=== PATIENT | male | born 1935 | race Caucasian/White ===

== ENCOUNTER 2017-08-10 16:23 | Emergency (ER) | payer OTHER ==
[2017-08-10 16:34] VITALS: TEMP 36.3
--- NOTE | 2017-08-10 20:24 | DIAGNOSTIC IMAGING REPORT ---
ULTRASOUND RIGHT LOWER EXTREMITY VENOUS CLINICAL HISTORY: Right leg swelling. COMPARISON STUDY: No priors. TECHNIQUE: Real-time, grayscale, and color Doppler sonography of the deep veins of the right lower extremity was performed from the inguinal crease to the calf. Compression and augmentation were utilized. Examination is degraded by large body habitus and soft tissue edema. FINDINGS: The right popliteal vein is noncompressible consistent with deep venous thrombosis. Flow is shown within the vessel. The common femoral and superficial femoral veins are patent and normally compressible. The greater saphenous vein and the profunda femoris vein at the junction with the common femoral vein are clear. The visualized calf veins are patent. IMPRESSION: Nonocclusive and age indeterminant deep venous thrombosis is identified in the right popliteal vein. Electronically signed by: Flaco Avila M.D. 08/10/2017 8:22 PM Dictated Date/Time: 08/10/2017 8:21 PM
--- NOTE | 2017-08-10 20:33 | EMERGENCY ROOM VISIT NOTE ---
History Report prepared by Santiibdat: Kevin Villalba Under the Supervision of: Dr. Miky Schilling D.O. First contact with patient: 18:22 Chief Complaint: LEG PAIN,LEG INJURY Stated Complaint: BLOOD CLOT RT LEG History of Present Illness The patient is a 82 year old male who presents to the Emergency Room with complaints of persistent right leg pain beginning last month. 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 He was started on Coumadin for the blood clot, with his most recent INR occurring four days ago. The patient has been seen in the [place] ED twice over the past few weeks for similar symptoms and was told that there was likely blood pooling around the clot. He also complains of worsening bilateral leg swelling. He notes that a few of the toes on his left foot appear purple. The patient was previously on Coumadin for a pacemaker, but was taken off due to being a high fall risk. Per daughter, the patient was told that the DVT in his right leg would likely need to be surgically removed. Source of History: patient Onset: Last month Position: leg (right) Timing: other (persistent) Note: Additional symptoms: bilateral leg swelling. Review of Systems See HPI for pertinent positives & negatives. A total of 10 systems reviewed and were otherwise negative. Past Medical & Surgical Medical Problems: (1) DVT (deep vein thrombosis) in (2) Pacemaker Family History No pertinent family history stated. Social History Smoking Status: Never Smoker Allergies Coded Allergies: Morphine (Unverified Allergy, Mild, 12/13/09) Sulfa Drugs (Unverified Allergy, Mild, 12/13/09) Penicillins (Verified Allergy, Unknown, 12/13/09) Physical Exam Vital Signs Date Time Temp Pulse Resp B/P (MAP) Pulse Ox O2 Delivery O2 Flow Rate FiO2 08/10/17 16:34 36.3 84 18 149/77 96 Room Air Physical Exam CONSTITUTIONAL/VITAL SIGNS: Reviewed / noted above. GENERAL: Non-toxic in appearance. INTEGUMENTARY: Warm, dry, and [place]. HEAD: Normocephalic. EYES: without scleral icterus or trauma. ENT/OROPHARYNX: clear and moist. LYMPHADENOPATHY/NECK: Is supple without lymphadenopathy or meningismus. RESPIRATORY: Lungs clear and equal. CARDIOVASCULAR: Regular rate and rhythm. GI/ABDOMEN: Soft and nontender. No organomegaly or pulsatile mass. No rebound or guarding. Normal bowel sounds. EXTREMITIES: Warm and well perfused. Bilateral lower extremity edema right greater than left. BACK: No CVA tenderness. NEUROLOGICAL: Intact without focal deficits. PSYCHIATRIC: normal affect. MUSCULOSKELETAL: Normally developed with good muscle tone. Medical Decision & Procedures ER Provider Diagnostic Interpretation: Radiology results as stated below per my review and radiologist interpretation: ULTRASOUND RIGHT LOWER EXTREMITY VENOUS FINDINGS: The right popliteal vein is noncompressible consistent with deep venous thrombosis. Flow is shown within the vessel. The common femoral and superficial femoral veins are patent and normally compressible. The greater saphenous vein and the profunda femoris vein at the junction with the common femoral vein are clear. The visualized calf veins are patent. IMPRESSION: Nonocclusive and age indeterminant deep venous thrombosis is identified in the right popliteal vein. Electronically signed by: Flaco Avila M.D. 08/10/2017 8:22 PM ED Course 1824: Previous medical records were reviewed. The patient was evaluated in room B10. A complete history and physical examination was performed. 2044: On reevaluation, the patient is resting comfortably. I discussed the results and findings with the patient. He verbalized agreement of the treatment plan. He was discharged home. Medical Decision Differential diagnosis: Etiologies such as DVT, musculoskeletal, infection, joint effusion, trauma, lymphedema, idiopathic, CHF, as well as others were entertained. This is an 82-year-old male who presents to the ED with a chief complaint of right lower extremity swelling. The patient states that he has history of a DVT in that leg. He reports that he has had a nonocclusive DVT in the right lower extremity. I saw previous report that revealed a popliteal DVT. The patient's INR was checked on Wednesday and it was 3.1. Because of the swelling, the patient was seen in early July for the same and was found to have a nonocclusive DVT at [facility]. Because of continued symptoms, the patient came here for evaluation. The patient's exam reveals right lower extremity edema greater than left. Ultrasound reveals a nonocclusive age-indeterminate DVT of the right popliteal vein. The patient was told the results. He will continue Coumadin. He is felt to be stable for discharge. Medication Reconcilliation Current Medication List: was personally reviewed by me Blood Pressure Screening Patient's blood pressure: Elevated blood pressure Blood pressure disposition: Elevated BP felt to be situational Impression Primary Impression: Deep vein thrombosis Scribe Attestation The scribe's documentation has been prepared under my direction and personally reviewed by me in its entirety. I confirm that the note above accurately reflects all work, treatment, procedures, and medical decision making performed by me. Departure Information Referrals Josie Whitfield M.D. (PCP) Patient Instructions My [facility] Additional Instructions Your ultrasound today reveals a nonocclusive DVT in the right popliteal vein. Continue Coumadin. Follow-up with your doctors. Return for worsening or new concerns.
[2017-08-10 20:58] VITALS: BP 180/97; PULSE 72; O2SAT 95
== END 2017-08-10 20:59 | disposition home or self-care (01) ==
LOC: C.EDB 16:24
DX: I82.4Z1 Acute embolism and thrombosis of unspecified deep veins of right distal lower extremity (principal); Z86.718 Personal history of other venous thrombosis and embolism; Z95.0 Presence of cardiac pacemaker; Z79.01 Long term (current) use of anticoagulants